=== PATIENT | female | born 1955 | race Two or more races ===

== ENCOUNTER → 2017-09-07 10:17 | Emergency (ER) | payer OTHER ==
[2017-09-07 11:21] LABS: ABS Basophils 0 10^3/ul (0-0.2); ABS Eosinophils 0.2 10^3/ul (0-0.6); ABS Lymphocytes 1.6 10^3/ul (1.0-4.8); ABS Monocytes 0.5 10^3/ul (0-0.8); ABS Neutrophils 2.5 10^3/ul (1.5-7.7); ABS Nucleated RBC 0 10^3/ul; Eosinophil % 3.9 % (0-6); Hematocrit 37 % (35-47); Hemoglobin 12.6 g/dl (12.0-16.0); Lymphocyte % 33.5 % (25-47); Mean Corpuscular HGB Conc 34 g/dl (31-36); Mean Corpuscular Hemoglobin 30 pg (27-31); Mean Corpuscular Volume 89 fL (80-97); Mean Platelet Volume 8.1 um3 (7.4-10.4); Nucleated Red Blood Cells % 0.2; Platelet Count 272 10^3/ul (150-450); Red Blood Count 4.18 10^6/ul (4.0-5.4); Red Cell Distribution Width 14 % (10.5-15); White Blood Count 4.9 10^3/ul (3.5-10.8)
--- NOTE | 2017-09-07 12:20 | RAD ---
Indication: Chest pain. Single frontal view of the chest performed at 1135 hours was reviewed. Comparison is made with previous exam dated October 29, 2015. No mediastinal shift is noted. Heart is of normal size and configuration. Lung johnson appear clear. IMPRESSION: NO ACTIVE CARDIOPULMONARY DISEASE IS NOTED.
[2017-09-07 12:24] LABS: Urine Appearance Clear; Urine Blood Negative (Negative); Urine Color Yellow; Urine Ketones Negative (Negative); Urine Protein Negative (Negative); Urine Specific Gravity 1.006 (1.010-1.030); Urine Urobilinogen Negative (Negative)
[2017-09-07 14:31] VITALS: BP 141/75
--- NOTE | 2017-09-09 07:50 | ED ---
Juan Diego Valente Angela, scribed for Marcus Cardoso MD on 09/07/17 at 1058 . Complex/Multi-Sys Presentation - HPI Summary HPI Summary: This pt is a 62 y/o female presenting to [facility] c/o left sided neck pain radiating to left arm since last night. Pt reports that around 16:00 and 17:00 last night, pt began to feel dizzy. Overnight pt states she developed pain on the left side of her neck radiating down her left arm. She describes this pain as an ache. Denies chest pain, SOB, dizziness. PMHx includes HTN. Pt is on antihypertensive medication for over 1 year now. Pt is a former smoker. FHx: maternal aunt with MD and maternal grandmother with cardiac hx. - History Of Current Complaint Chief Complaint: EDChestPainROMI Time Seen by Provider: 09/07/17 10:37 Hx Obtained From: Patient Onset/Duration: Lasting Hours, Still Present Timing: Hours Severity Currently: Moderate Location: Pain At: - left side of neck, Radiates To: - left arm Aggravating Factor(s): nothing Alleviating Factor(s): nothing Associated Signs And Symptoms: Positive: Other - neck pain. Negative: Dizziness - today, SOB, Chest Pain - Allergies/Home Medications Allergies/Adverse Reactions: Allergies Allergy/AdvReac Type Severity Reaction Status Date / Time ciprofloxacin [From Cipro] Allergy Vomiting Verified 09/07/17 10:36 nickel Allergy Rash And Verified 09/07/17 10:36 Itching Penicillins Allergy See Comment Verified 09/07/17 10:36 Home Medications: Home Medications Cholecalciferol TAB* [Vitamin D TAB*] 1,000 unit PO DAILY 09/07/17 [History Confirmed 09/07/17] Cyanocobalamin TAB* [Vitamin B12 TAB*] 500 mcg PO DAILY 09/07/17 [History Confirmed 09/07/17] Irbesartan (NF) [Avapro (NF)] 75 mg PO DAILY 09/07/17 [History Confirmed ] PMH/Surg Hx/FS Hx/Imm Hx Endocrine/Hematology History: Denies: Hx Diabetes, Hx Thyroid Disease Cardiovascular History: Denies: Hx Hypertension, Hx Pacemaker/ICD Respiratory History: Denies: Hx Asthma, Hx Chronic Obstructive Pulmonary Disease (COPD) GI History: Denies: Hx Ulcer Sensory History: Denies: Hx Hearing Aid Psychiatric History: Denies: Hx Panic Disorder - Cancer History Hx Chemotherapy: No Hx Radiation Therapy: No Infectious Disease History: No Infectious Disease History: Denies: Hx Clostridium Difficile, Hx Hepatitis, Hx Human Immunodeficiency Virus (HIV), Hx of Known/Suspected MRSA, Hx Shingles, Hx Tuberculosis, Traveled Outside the [place] in Last 30 Days - Family History Known Family History: Positive: Cardiac Disease - Maternal grandmother. Maternal aunt: [place] - Social History Alcohol Use: Occasionally Substance Use Type: Reports: None Smoking Status (MU): Former Smoker Review of Systems Negative: Fever Negative: Chest Pain Negative: Shortness Of Breath Gastrointestinal: Negative Musculoskeletal: Other - left sided neck pain, left arm pain Neurological: Other - NEG: dizziness All Other Systems Reviewed And Are Negative: Yes Physical Exam - Summary Physical Exam Summary: VITAL SIGNS: Reviewed. GENERAL: Patient is a well-developed and nourished female who is lying comfortable in the stretcher. Patient is not in any acute respiratory distress. HEAD AND FACE: No signs of trauma. No ecchymosis, hematomas or skull depressions. No sinus tenderness. EYES: PERRLA, EOMI x 2, No injected conjunctiva, no nystagmus. EARS: Hearing grossly intact. Ear canals and tympanic membranes are within normal limits. MOUTH: Oropharynx within normal limits. NECK: Supple, trachea is midline, no adenopathy, no JVD, no carotid bruit, no c- spine tenderness, neck with full ROM. CHEST: Symmetric, no tenderness at palpation LUNGS: Clear to auscultation bilaterally. No wheezing or crackles. CVS: Regular rate and rhythm, S1 and S2 present, no murmurs or gallops appreciated. ABDOMEN: Soft, non-tender. No signs of distention. No rebound no guarding, and no masses palpated. Bowel sounds are normal. EXTREMITIES: FROM in all major joints, no edema, no cyanosis or clubbing. NEURO: Alert and oriented x 3. No acute neurological deficits. Speech is normal and follows commands. SKIN: Dry and warm Triage Information Reviewed: Yes Vital Signs On Initial Exam: Initial Vitals Temp Pulse Resp BP Pulse Ox 97.2 F 55 17 165/82 96 09/07/17 10:31 09/07/17 10:31 09/07/17 10:31 09/07/17 10:31 09/07/17 10:31 Vital Signs Reviewed: Yes Diagnostics - Vital Signs Vital Signs Temp Pulse Resp BP Pulse Ox 09/07/17 10:31 97.2 F 55 17 165/82 96 - Laboratory Result Diagrams: 09/07/17 10:50 09/07/17 10:50 Lab Statement: Any lab studies that have been ordered have been reviewed, and results considered in the medical decision making process. - Radiology Chest XR Xray Interpretation: No Acute Changes - IMPRESSION: No active cardiopulmonary disease is noted. Dr. Cardoso has reviewed this radiology report. Radiology Interpretation Completed By: Radiologist - EKG 11:04 Cardiac Rate: Bradycardia EKG Rhythm: Sinus Bradycardia - at 47 bpm EKG Interpretation: T wave inversion in III and aVF. Re-Evaluation - Re-Evaluation First Eval Re-Evaluation Time: 14:03 Comment: I reviewed the lab, EKG, and XR resutls with the pt. Pt will be discharged home. Complex Multi-Symp Course/Dx Assessment/Plan: This pt is a 62 y/o female presenting to [facility] c/o left sided neck pain radiating to left arm since last night. Pt reports that around 16:00 and 17:00 last night, pt began to feel dizzy. Overnight pt states she developed pain on the left side of her neck radiating down her left arm. She describes this pain as an ache. Denies chest pain, SOB, dizziness. PMHx includes HTN. Pt is on antihypertensive medication for over 1 year now. Pt is a former smoker. FHx: maternal aunt with MD and maternal grandmother with cardiac hx. Test results without any significant abnormalities except for CKMB of 9.3. Two troponins, 4 hours apart, are both negative. Urinalysis is negative for UTI. Chest XR shows no active cardiopulmonary disease is noted. EKG shows sinus bradycardia with T wave inversions in III and aVF, without ST elevations. Therefore she will be discharged to home with follow up from her PCP. I discussed all the findings and test results with the patient. All questions were answered to patient satisfaction. There were no further complaints or concerns. She is instructed to return to the ED for any worsening or new symptoms. Pt is hemodynamically stable, alert and oriented x3. - Diagnoses Provider Diagnoses: Atypical chest pain Discharge - Sign-Out/Discharge Documenting (check all that apply): Discharge - discharge to home - Discharge Plan Condition: Stable Disposition: HOME Patient Education Materials: Chest Pain (ED) Referrals: Hortencia Taveras MD [Primary Care Provider] - Additional Instructions: Please follow up with your primary care provider. RETURN TO THE ED FOR ANY NEW OR WORSENING SYMPTOMS. The documentation as recorded by the Juan Diego dobbs Angela accurately reflects the service I personally performed and the decisions made by Walker duran Walter, MD.
== END | disposition home or self-care (01) ==
LOC: ED 10:17
DX: R07.89 Other chest pain (principal); M54.2 Cervicalgia; Z87.891 Personal history of nicotine dependence
CPT/HCPCS: 36415; 71045; 80053; 81003; 82553; 83735; 83880; 84436; 84443; 84484; 85025; 85730; 93005; 99282

== ENCOUNTER 2018-03-13 13:52 | Emergency (ER) | payer OTHER ==
[2018-03-13 15:16] VITALS: BP 156/95
--- NOTE | 2018-03-13 16:43 | RAD ---
INDICATION: 3 days of productive cough and fever COMPARISON: Chest x-ray September 07, 2017 TECHNIQUE: PA and lateral views of the chest were obtained. FINDINGS: The heart and mediastinum are normal in size and contour. The lungs are grossly clear. There is no evidence of large pleural effusion. Visualized bones are normal for the patient's age. There is no radiographic evidence of free air beneath the diaphragm IMPRESSION: No radiographic evidence of acute cardiopulmonary disease.
--- NOTE | 2018-03-13 16:56 | UC ---
Respiratory Complaint HPI - HPI Summary HPI Summary: The pt is a 62 yo female with a 2 day hx of f/c and productive cough no CP or SOB gagged on phlegm and vomited last PM no nausea no family members ill - History of Current Complaint Chief Complaint: UCRespiratory Stated Complaint: COUGH, AND SINUS CONGESTION Time Seen by Provider: 03/13/18 15:53 Hx Obtained From: Patient Onset/Duration: Gradual Onset Timing: Constant Severity Initially: Mild Severity Currently: Moderate Pain Intensity: 0 Pain Scale Used: 0-10 Numeric Character: Cough: Productive Aggravating Factors: Exertion, Deep Breaths, Recumbent Position Alleviating Factors: Nothing Associated Signs And Symptoms: Positive: Fever, Chills, Nasal Congestion - Allergies/Home Medications Allergies/Adverse Reactions: Allergies Allergy/AdvReac Type Severity Reaction Status Date / Time ciprofloxacin [From Cipro] Allergy Vomiting Verified 03/13/18 15:16 nickel Allergy Rash And Verified 03/13/18 15:16 Itching Penicillins Allergy See Comment Verified 03/13/18 15:16 PMH/Surg Hx/FS Hx/Imm Hx Previously Healthy: Yes - Surgical History Surgical History: None - Family History Known Family History: Positive: Cardiac Disease - Maternal grandmother. Maternal aunt: [place], Hypertension - Social History Alcohol Use: Occasionally Alcohol Amount: 2 glasses of wine Substance Use Type: None Smoking Status (MU): Former Smoker Review of Systems Constitutional: Fever, Chills, Fatigue Skin: Negative Eyes: Negative ENT: Negative Respiratory: Cough Cardiovascular: Negative Gastrointestinal: Negative Genitourinary: Negative Motor: Negative Neurovascular: Negative Musculoskeletal: Negative Neurological: Negative Psychological: Negative All Other Systems Reviewed And Are Negative: Yes Physical Exam Triage Information Reviewed: Yes Appearance: Well-Appearing, No Pain Distress, Well-Nourished Vital Signs: Initial Vital Signs Temp 99.9 F 03/13/18 15:13 Pulse 69 03/13/18 15:13 Resp 12 03/13/18 15:13 BP 156/95 03/13/18 15:13 Pulse Ox 98 03/13/18 15:13 Vital Signs Reviewed: Yes Eyes: Positive: Conjunctiva Clear ENT: Positive: Hearing grossly normal. Negative: Nasal congestion, Nasal drainage, Tonsillar swelling, Tonsillar exudate, Trismus, Muffled voice, Hoarse voice, Dental tenderness, Sinus tenderness Neck: Positive: Supple, Nontender, No Lymphadenopathy Respiratory: Positive: No respiratory distress, No accessory muscle use, Rhonchi Cardiovascular: Positive: RRR, No Murmur. Negative: Tachycardia, Bradycardia Musculoskeletal: Positive: ROM Intact, No Edema Neurological: Positive: Alert Psychological Exam: Normal Skin Exam: Normal UC Diagnostic Evaluation - Laboratory O2 Sat by Pulse Oximetry: 98 - normal, not hypoxic - Radiology Xray Interpretation: No Acute Changes Radiology Interpretation Completed By: Radiologist Respiratory Course/Dx - Differential Dx/Diagnosis Provider Diagnoses: acute bronchits. elevated BP without dx of HYPERTENSION Discharge - Sign-Out/Discharge Documenting (check all that apply): Patient Departure All imaging exams completed and their final reports reviewed: Yes - Discharge Plan Condition: Stable Disposition: HOME Prescriptions: Azithromycin TAB* [Zithromax TAB*] 250 mg PO DAILY #6 tab Patient Education Materials: Acute Bronchitis (ED) Referrals: Hortencia Taveras MD [Primary Care Provider] - If Needed Additional Instructions: rest fluids tylenol or advil for pain recheck for new or worsening symptoms recheck next week if not better - Billing Disposition and Condition Condition: STABLE Disposition: Home
== END 2018-03-13 17:02 | disposition home or self-care (01) ==
LOC: UCEAST 13:52
DX: J20.9 Acute bronchitis, unspecified (principal); R03.0 Elevated blood-pressure reading, without diagnosis of hypertension; Z88.0 Allergy status to penicillin; Z88.1 Allergy status to other antibiotic agents; Z87.891 Personal history of nicotine dependence
CPT/HCPCS: 71046; 99212; G0463

== ENCOUNTER 2018-11-22 14:18 | Emergency (ER) | payer OTHER ==
[2018-11-22 14:32] VITALS: BP 137/80
--- NOTE | 2018-11-22 15:48 | UC ---
Throat Pain/Nasal Al HPI - HPI Summary HPI Summary: 63 YEAR OLD FEMALE comes in with a chief complaint of upper respiratory tract infection symptoms for 3-4 days. She does have rhinorrhea which is primarily clear. Is also having a loose cough although she is not able to bring up much of the sputum. Has been having low-grade fevers. No wheezing. Cough is worse using when she first wakes up. She has not tried any [id number] medications. - History of Current Complaint Chief Complaint: UCRespiratory Stated Complaint: FEVER COUGH HEADACHE Time Seen by Provider: 11/22/18 15:14 Pain Intensity: 3 - Allergies/Home Medications Allergies/Adverse Reactions: Allergies Allergy/AdvReac Type Severity Reaction Status Date / Time ciprofloxacin [From Cipro] Allergy Vomiting Verified 11/22/18 14:31 nickel Allergy Rash And Verified 11/22/18 14:31 Itching Penicillins Allergy See Comment Verified 11/22/18 14:31 Home Medications: Home Medications Aspirin 650 mg PO BID PRN 11/22/18 [History Confirmed 11/22/18] PMH/Surg Hx/FS Hx/Imm Hx Previously Healthy: Yes Cardiovascular History: Hypertension - Surgical History Surgical History: Yes Surgery Procedure, Year, and Place: T&A - Family History Known Family History: Positive: Cardiac Disease - Maternal grandmother. Maternal aunt: [place], Hypertension - Social History Alcohol Use: Occasionally Alcohol Amount: 2 glasses of wine Substance Use Type: None Smoking Status (MU): Former Smoker Review of Systems All Other Systems Reviewed And Are Negative: Yes Constitutional: Positive: Fever Skin: Positive: Negative Eyes: Positive: Negative ENT: Positive: Nasal Discharge, Sinus Congestion Respiratory: Positive: Cough, Other - SEE HPI Cardiovascular: Positive: Negative Gastrointestinal: Positive: Negative Motor: Positive: Negative Neurovascular: Positive: Negative Musculoskeletal: Positive: Negative Neurological: Positive: Negative Psychological: Positive: Negative Is Patient Immunocompromised?: No Physical Exam Triage Information Reviewed: Yes Appearance: No Pain Distress, Well-Nourished, Ill-Appearing - MILD Vital Signs: Initial Vital Signs Temp 99.7 F 11/22/18 14:27 Pulse 86 11/22/18 14:27 Resp 18 11/22/18 14:27 BP 137/80 11/22/18 14:27 Pulse Ox 96 11/22/18 14:27 Vital Signs Reviewed: Yes Eye Exam: Normal Eyes: Positive: Conjunctiva Clear ENT: Positive: Pharyngeal erythema, Nasal congestion, Nasal drainage, TMs normal Neck exam: Normal Neck: Positive: Supple, Nontender Respiratory: Positive: No respiratory distress, Rhonchi Cardiovascular: Positive: RRR Musculoskeletal Exam: Normal Musculoskeletal: Positive: Strength Intact, ROM Intact Neurological Exam: Normal Neurological: Positive: Alert, Muscle Tone Normal Psychological Exam: Normal Psychological: Positive: Age Appropriate Behavior Skin Exam: Normal Throat Pain/Nasal Course/Dx - Course Course Of Treatment: DISCUSSED VIRAL VERSES BACTERIAL INFECTION AND THE ROLE OF ANTIBIOTICS. THE PATIENT PREFERS TO HAVE AN ANTIBIOTIC PRESCRIPTION AT THIS TIME TO USE IF NOT IMPROVING. - Differential Dx/Diagnosis Provider Diagnosis: Bronchitis Discharge - Sign-Out/Discharge Documenting (check all that apply): Patient Departure All imaging exams completed and their final reports reviewed: No Studies - Discharge Plan Condition: Stable Disposition: HOME Prescriptions: Azithromyxin ROBERTO (NF) [Z-Roberto (Zithromax) 250 mg tabs #6] 2 tab PO .TODAY, THEN 1 DAILY #6 tab Patient Education Materials: Acute Bronchitis (ED) Referrals: Hortencia Taveras MD [Primary Care Provider] - Additional Instructions: FOLLOW UP WITH YOUR DOCTOR IF NOT COMPLETELY IMPROVED. GUAIFENESIN IS AN EXPECTORANT. DEXTROMETHORPHAN IS A COUGH SUPPRESSANT. GET RECHECKED SOONER IF YOUR CONDITION WORSENS OR ANY QUESTIONS OR CONCERNS. - Billing Disposition and Condition Condition: STABLE Disposition: Home
== END 2018-11-22 16:00 | disposition home or self-care (01) ==
LOC: UCEAST 14:18
DX: J40 Bronchitis, not specified as acute or chronic (principal); I10 Essential (primary) hypertension; Z87.891 Personal history of nicotine dependence; Z79.82 Long term (current) use of aspirin; Z88.0 Allergy status to penicillin
CPT/HCPCS: 99212; G0463